=== PATIENT | female | born 1940 | race Asian ===

== ENCOUNTER 2018-02-07 12:47 | Inpatient (IN) | payer BC ==
[~2018-02-07] VITALS: Ht 152.4 cm; Wt 51.1 kg
[2018-02-07 13:25] VITALS: BP_SYST 154
--- NOTE | 2018-02-07 13:35 | NUR ---
Patient to ER bed 1 to gown for evaluation. Side rails up.
--- NOTE | 2018-02-07 13:37 | NUR ---
ER at bedside examining patient.
--- NOTE | 2018-02-07 14:30 | NUR ---
Informed by CT that patient had fall during procedure, fall with right shoulder pain. Patient fell on right shoulder, did not hit her head or have loss of consciousness. MD was called for assessment of patient, patient returned to room via rney. XR of right shoulder ordered. Patient has good range of motion of affected arm. +2 pulses to bilateral radial pulses. Family at bedside upon return.
[2018-02-07] MEDS ORDERED: BACITRACIN 1 GM OINT TP ONE (14:42)
--- NOTE | 2018-02-07 14:44 | NUR ---
MD Pang at bedside talking with family. Will continue to follow up.
--- NOTE | 2018-02-07 14:49 | NUR ---
septic tank service technician and MD at bedside discussing incident with family present at bedside.
[2018-02-07] MEDS ORDERED: ACETAMINOPHEN 325 MG TABLET PO ONE (15:00)
--- NOTE | 2018-02-07 15:01 | NUR ---
XR at bedside for portable exam.
--- NOTE | 2018-02-07 16:48 | NUR ---
Orders recieved from Dr. Carter. Orders to be entered by nurse. Called [facility] for room assignment.
[2018-02-07] MEDS ORDERED: ONDANSETRON HCL 4 MG/2 ML VIAL IVP PRN (17:00)
--- NOTE | 2018-02-07 17:17 | NUR ---
Patient will be admitted to care of Dr. Carter. Admitted to MedSurg unit. Will go to room 102B. Belongings list completed. Summary report printed. Report will be given at bedside.
--- NOTE | 2018-02-07 17:17 | NUR ---
ADMISSION NOTE Received patient from ER via allyssa report received from Jacob ER nurse. Patient admitted with diagnosis of s/p fall . Patient is awake, alert, oriented X 3. Patient oriented to hospital room, call light, toileting, pain management and safety-teach back done. Patient informed that will be her nurse and that their room number is 112-b. Personal belongings checked and Belongings List documented. Call light within reach. Addendum: 02/07/18 at 1807 by Lisette Stewart RN Michelle BLACKWELL RN received report from Danay Larios RN.
[2018-02-07 17:26] VITALS: BP_SYST 162
--- NOTE | 2018-02-07 17:30 | NUR ---
Initial Physical Assessment: Patient awake, alert and oriented. Stable. I.V. access patent on saline lock. R eye swollen, bruise and unable to open. Patient able to walk with assist. All extremities active. Safety measures in placed. Bed alarm on. Call light within reach.
[2018-02-07] MEDS ORDERED: LOSA50TA3 PO (18:03)
[2018-02-07] MEDS ORDERED: ASPI-1153 PO (18:03)
--- NOTE | 2018-02-07 18:30 | NUR ---
rounds: assisted patient to the bedside commode.
--- NOTE | 2018-02-07 19:19 | NUR ---
closing notes: Patient on bed resting with family at bedside. Stable. Needs attended. Safety measures in placed. Call light within reach. Report given to [address].
[2018-02-07 19:24] LABS: BILIRUBIN,URINE NEGATIVE (NEGATIVE); BLOOD, URINE NEGATIVE (NEGATIVE); CLARITY/URINE CLEAR (CLEAR); COLOR,URINE YELLOW (YELLOW); GLUCOSE,URINE NEGATIVE (NEGATIVE); KETONES,URINE NEGATIVE (NEGATIVE); LEUKOCYTE ESTERASE ,URINE NEGATIVE (NEGATIVE); NITRITE, URINE NEGATIVE (NEGATIVE); PROTEIN URINE NEGATIVE (NEGATIVE); UROBILINOGEN,URINE 0.2 (0.2-1.0)
--- NOTE | 2018-02-07 19:30 | NUR ---
Opening Notes Received patient in bed AAOx4 and able to verbalize needs. Vitals wnl. Bruise noted to right eye from fall at home, with pain on the right shoulder from fall during CT scan. IV on the right AC 20 gauge saline lock, clean dry and intact. patient denies and respiratory distress. Bed alarm active. Education give to Belen and family regarding medication and care of the patient while at the facility. Oriented the patient to the room and use of the call light. Safety precautions in place. Will monitor on rounds.
[2018-02-07 19:43] LABS: CKMB RELATIVE INDEX 1.1 (0.0-2.9); CREATINE KINASE MB 2.2 ng/mL (0-3.6)
[2018-02-07 20:00] VITALS: BP_SYST 154
--- NOTE | 2018-02-07 20:05 | NUR ---
Dr Carter contacted. Edwige for family to put Salonpas pad on right shoulder. New order for xray of right shoulder.
--- NOTE | 2018-02-07 20:10 | NUR ---
XRay of shoulder already taken at time of incident. Will cancel TO order.
[2018-02-07] MEDS: CEFTRIAXONE SOD 1 GM/ DEXTROSE,ISO 50 ML PREMIX IV SCH (20:21)
[2018-02-07] MEDS: ACETAMINOPHEN 325 MG TABLET PO PRN (20:21)
[2018-02-07] MEDS ORDERED: LOSARTAN POTASSIUM 50 MG TABLET (COZAAR) PO ONE (21:00)
[2018-02-07] MEDS ORDERED: ASPIRIN 81 MG TAB.CHEW PO ONE (21:00)
[2018-02-07] MEDS ORDERED: cefTRIAXone 1 GM VIAL IV SCH (21:00)
--- NOTE | 2018-02-07 22:15 | NUR ---
Patient ambulated to the bathroom with assistance. Generalized weakness noted. family , Antoinette is at the bedside. Bed alarm is active and will monitor on rounds.
--- NOTE | 2018-02-08 00:26 | NUR ---
Patient asleep in bed. Family member at bedside unable to sleep. Will cont to monitor on rounds.
[2018-02-08 00:32] VITALS: BP_SYST 161
[2018-02-08 02:22] LABS: ANION GAP 8 (5-15); CHLORIDE 106 mmol/L (98-107); CREATININE 0.82 mg/dL (0.55-1.30); GLUCOSE 98 mg/dL (70-99); POTASSIUM 3.2 mmol/L (3.5-5.1); SODIUM SERUM 141 mmol/L (136-145); UREA NITROGEN, BLOOD 12 mg/dL (8-21)
[2018-02-08 02:31] LABS: ALANINE AMINOTRANSFERASE 20 U/L (12-78); ALBUMIN 3.2 g/dL (3.4-4.8); ASPARTATE AMINOTRANSFERASE 23 U/L (10-37); TOTAL BILIRUBIN 0.5 mg/dL (0.0-1.0)
--- NOTE | 2018-02-08 02:55 | NUR ---
Patient ambulated to the bathroom with assistance. Patient states she needs to have bowel movement but has not eaten dinner last night. Able to pass gas. Patient returned to bed to get rest.
--- NOTE | 2018-02-08 04:25 | NUR ---
Patient stable. No change in condition. resting in bed.
--- NOTE | 2018-02-08 06:44 | NUR ---
CLosing Notes Patient has tolerable pain. Refusing to take pain medication at this time. Daughter is at the bedside. All needs have been met and will endorse to the oncoming nurse. Safety precautions in place.
[2018-02-08 07:17] LABS: BASOPHILS # (AUTO) 0.1 K/uL (0.0-0.2); EOSINOPHILS # (AUTO) 0.3 K/uL (0.0-0.4); EOSINOPHILS % (AUTO) 3.7 % (0.0-4.0); HEMATOCRIT 36.8 % (36-48); HEMOGLOBIN 12.1 g/dL (12.0-16.0); LYMPHOCYTES # (AUTO) 1.6 K/uL (1.0-5.5); LYMPHOCYTES % (AUTO) 22.9 % (20.5-51.5); MEAN CORPUSCULAR HEMOGLOBIN 31 pg (27-31); MEAN CORPUSCULAR HGB CONC 33 % (32-36); MEAN CORPUSCULAR VOLUME 95 fL (79.0-98.0); MONOCYTES # (AUTO) 0.5 K/uL (0.0-1.0); MONOCYTES % (AUTO) 6.9 % (1.7-9.3); NEUTROPHILS # (AUTO) 4.4 K/uL (1.8-7.7); NEUTROPHILS % (AUTO) 65.5 % (40.0-70.0); PLATELET COUNT (AUTO) 240 K/uL (130-430); RED BLOOD CELL COUNT(AUTO) 3.88 MIL/uL (4.2-6.2); RED CELL DISTRIBUTION WIDTH 13.3 % (9.0-15.0); WHITE BLOOD COUNT (AUTO) 6.9 K/uL (4.8-10.8)
[2018-02-08 08:05] VITALS: BP_SYST 188
--- NOTE | 2018-02-08 08:05 | NUR ---
INITIAL ROUNDS Received pt AAOx4, no s/s resp distress, no c/o pain or discomfort. Pt's daughter at bedside. Plan of care for the day reviewed with pt and pt's daughter-both verbalized their understanding. Noted pt with edema and bruising to right eye area-pt declined and ice pack. Pt c/o right shoulder stiffness-pt able to move forearm, wiggle fingers, radial pulse palpable. Pt stated it was from when she fell off the gurney in [place] yesterday. Pain management, skin and safety discussed-teach back done. Dr. Carter here to see pt. Call light within reach.
[2018-02-08] MEDS: ACETAMINOPHEN 325 MG TABLET PO PRN ×3 (08:12→20:48)
[2018-02-08] MEDS ORDERED: ENALAPRILAT DIHYDRATE 1.25 MG/ML VIAL IVP PRN (08:45)
[2018-02-08 09:27] VITALS: BP_SYST 148
--- NOTE | 2018-02-08 10:10 | NUR ---
ROUNDS Pt sitting up in bed visiting with family-family given MRI checklist. No c/o pain or discomfort. Pt seen by Dr. Sosa. Needs met, call light within reach.
--- NOTE | 2018-02-08 11:20 | NUR ---
TO MRI Pt left floor via wheelchair to MRI in no distress.
--- NOTE | 2018-02-08 12:45 | NUR ---
BACK FROM MRI Pt back from MRI in no distress, pt made comfortable in bed with no c/o pain or discomfort. Pt now sitting up in bed eating her lunch. Pt's daughter remains at bedside.Call light within reach.
[2018-02-08 16:00] VITALS: BP_SYST 152
--- NOTE | 2018-02-08 16:03 | NUR ---
PHYSICAL THERAPY EVALUATION HAS BEEN COMPLETED. RECOMMEND FWW AND HOME HEALTH PHYSICAL THERAPY DUE TO PATIENT HAVING 6 FALLS WITHIN A ONE YEAR TIME PERIOD. MESSAGE LEFT ON VOICEMAIL FOR PROGRAM AIDE CHRISTIAN HAZEL [phone].
--- NOTE | 2018-02-08 16:44 | NUR ---
DCP. SPOKE WITH PATIENTS EVAELIDIA Majano [phone], PT ADMIITED FOR MECHANICAL FALL WITH FACIAL INJURY . DCP. PATIENT WILL DC HOME WITH HH, TO BE DETERMINED. FWW WILL BE PROVIDED PRIOR TO D/C. SPOKE WITH Harriet HERRERA. DID VERY WELL WITH PHYSICAL THERAPY. AMBULATED IN THE HALLWAY. HAS AN APPT WITH PCP DR AYAD JAIMES AT 2PM. SPOKE WITH DR CHRISTI DESAI DCP. MRI SHOWED ROTATOR CUFF TEAR 1.8 X 1.9. S/P FALL AT [facility] ON 02/07/[address] COVARRUBIAS WAS CONSULTED. WILL CONTINUE TO FF . CHRISTIAN DAVE RN/CM
--- NOTE | 2018-02-08 16:58 | NUR ---
CONSULT ORTHO SHOULDER PAIN DR COVARRUBIAS [phone] DR LAFLEUR DESKTOP ARCHITECT S/W ANIBAL EXCHANGE
--- NOTE | 2018-02-08 17:10 | NUR ---
ATUL SCALE EVALUATION: Late note for 1710 secondary to patient care. Patient evaluated for a low Atul score. Patient was awake, alert, oriented, and received in a [place] bed with an IsoFlex KANWAL mattress. Patient is able to turn independently, and ambulates with a front wheel walker and unsteady gait. Skin is fair (-). Recommend encourage and assist patient as needed with repositioning every 2 hours with pillow support and off-load pressure areas with pillows for pressure re-distribution. Elevate, off-load and float bilateral heels with pillows. Perform skin care and monitor skin integrity Q shift. Skin assessment: 1. Right periorbital area: Ecchymosis. No odor, no drainage. Small amount of yellowish discharge coming from medial eye. Periorbital area is edematous, and patient's eye is barely open. Bilateral pupils: 3 mm, equal, round, and reactive to light and accommodation. Recommend: Apply cold pack to bilateral eyes 4 times a day, and when necessary for edema or pain. Cleanse eye with sterile water, pat dry around eye, as needed for eye discharge. 2. Right facial area, lateral to periorbital area: Wound, sustain from fall. Wound bed has 90% yellow tissue, 5% purple tissue and 5% dark red scab, moist. No odor, no drainage. Periwound and surrounding tissue ecchymotic. Wound measures 2.0 cm x 2.5 cm. Recommend: Cleanse wound with sterile water. Gently pat dry. Apply hydrogel to wound bed. Cover with small non-adhesive foam dressing, cut to size. Secure with transparent dressing. Perform wound care daily, and as needed for dressing soiling or dislodgment. 3. Right shoulder: Pain post fall. Recommend: Apply cold packs to shoulder 4 times a day, and as needed for pain. May switch to heat post 48-72 hours. Explained to patient why a cold pack is beneficial at this time as opposed to heat, and encourage patient to allow use of cold packs to eyes and right shoulder, and patient agreed. Placed a warm blanket on patient post treatment.
--- NOTE | 2018-02-08 17:10 | NUR ---
WOUND CARE Assisted wall mirror department supervisor Dale with wound care. *Patient's right eye cleansed with normal saline and discharge at corner of eye removed. Small abrasion below right eye cleansed with normal saline, Hydrogel placed to wound be, covered with small foam dressing and secured in place with op-site. Wound measured 2 cm x 2.5 cm. Wound bed was 90% yellow tissue, 5% purple tissue and 5 % dark red scab. Ice pack wrapped in a pillow case placed to pt's right eye swelling area. Ice pack x 2 wrapped in pillow case placed to pt's right shoulder on the front and back. Pt tolerated well.
--- NOTE | 2018-02-08 18:30 | NUR ---
CLOSING NOTE Pt resting quietly in bed with no s/s resp distress, no c/o pain or discomfort. Pt and pt's daughter aware of Orthopedic consult with Dr. Torres. Family remains at bedside. Needs met, call light within reach.
--- NOTE | 2018-02-08 19:08 | NUR ---
DR LAFLEUR.. DR. LAFLEUR CALLED AND SAID THE PT IS [facility] AND HE DOES NOT HAVE CONTRACT WITH THEM SO HE CAN NOT SEE THE PT. NOTIFED CHARGE NURSE AND RN.
--- NOTE | 2018-02-08 19:30 | NUR ---
Initial PM Note Pt is resting comfortably in bed fully AAO x4. Speech is clear and pt is able to make her needs known. No c/o pain at this time. Pt's daughter is at the bedside. VSS. Pt is afebrile. Rt upper facial foam dressing is dry and intact. Saline lock in RAC is without any signs of infiltration. Fall and safety precautions are in place. Pt was instructed to call for assistance as needed and pt verbalized understanding. Call light is with pt and bed alarm is on. Bed is in the lowest and locked positions. Will continue to monitor pt.
[2018-02-08 20:00] VITALS: BP_SYST 147
--- NOTE | 2018-02-08 20:00 | NUR ---
Ambulation Pt ambulated to the bathroom with a walker and with steady gait.
--- NOTE | 2018-02-08 20:30 | NUR ---
Dressing Removal/Ice Packs Right upper facial foam dressing was removed by pt's second daughter who came to visit. She stated the wound will heal faster when it is not covered. 1 plastic bottle of sterile water was placed at the bedside per family's request. Pt and family stated pt's right eye does not need cleaning with the sterile water tonight. Sterile 4 x 4 gauze sponges also left at the bedside. Ice packs wrapped in pillow cases were applied to pt's right facial area and right shoulder per family's request.
--- NOTE | 2018-02-08 20:48 | NUR ---
Pain Medication Tylenol 325mg was given po for c/o right facial area pain with relief. Pt's daughters are at the bedside.
[2018-02-08] MEDS: CEFTRIAXONE SOD 1 GM/ DEXTROSE,ISO 50 ML PREMIX IV SCH (20:55)
[2018-02-08] MEDS ORDERED: ASPIRIN 81 MG TAB.CHEW PO SCH (21:00)
[2018-02-08] MEDS ORDERED: LOSARTAN POTASSIUM 50 MG TABLET (COZAAR) PO SCH (21:00)
--- NOTE | 2018-02-08 22:00 | NUR ---
Rounds Pt is sleeping without any distress noted. Fall and safety precautions are in place. Call light is with pt and bed alarm is on. Saline lock in RAC is without any signs of infiltration.
--- NOTE | 2018-02-08 22:09 | NUR ---
CONSULT CONSULT CALLED FOR DR. PEREZ I SPOKE WITH IBAN LAMAR REASON FOR CONSULT: FACIAL FRACTURE REQUESTING CONSULT: DR. BARRAZA TIRE LAYER PHONE NUMBER: [phone]
--- NOTE | 2018-02-09 | NUR ---
Rounds Pt is sleeping without any distress noted. Saline lock is intact in RAC. Call light is with pt and bed alarm is on. Pt's daughter is sleeping in a recliner at the bedside.
[2018-02-09 00:15] VITALS: BP_SYST 151
--- NOTE | 2018-02-09 02:00 | NUR ---
Rounds Pt is sleeping without any distress noted. Fall and safety precautions are in place.
--- NOTE | 2018-02-09 04:00 | NUR ---
Rounds Pt is sleeping comfortably in bed. Saline lock is intact in RAC. Call light is with pt and bed alarm is on. Will continue to monitor pt.
--- NOTE | 2018-02-09 06:27 | NUR ---
Closing Note Pt is awake and resting comfortably in bed. All pt's needs were attended to. No fall or injury noted this shift. Saline lock is intact in RAC. Fall and safety precautions are in place. Will endorse to day shift nurse.
[2018-02-09 08:04] VITALS: BP_SYST 160
--- NOTE | 2018-02-09 08:20 | NUR ---
OPENING NOTE: MORNING REPORT WAS TAKEN FROM MANAGER STAR NURSE. PATIENT ALERT AND ORIENTED X4. PATIENT IS NOT COMPLAINING OF SHORTNESS OF BREATH. PATIENT NOT COMPLAINING OF NAUSEA OR VOMITING. PATIENT NOT COMPLAINING OF CONSTIPATION. PATIENT ONLY COMPLAINING OF PAIN WHEN SHE MOVES. FAMILY AT BEDSIDE. FAMILY REFUSED TO HAVE BED ALARM ON BECAUSE THEY HELP HER TO RESTROOM. EDUCATED TO CALL IF THEY NEED HELP. VERBALIZED UNDERSTANDING. CALL LIGHT IS IN REACH AND BED IN LOWEST POSITION. WILL CONTINUE TO MONITOR.
--- NOTE | 2018-02-09 10:08 | NUR ---
NOTE: GAVE PATIENT VASOTEC BECAUSE PATIENT'S BLOOD PRESSURE ELEVATED. WILL CONTINUE TO MONITOR AND REASSESS BLOOD PRESSURE.
--- NOTE | 2018-02-09 11:01 | NUR ---
DCP. MET WITH PT. 3 DTRS AT BEDSIDE. PT LIVES WITH ELIDIA. DCP HOME WITH [facility] [phone]. FWW WAS PROVIDED TO PT. YESTERDAY. RECEIVED ORDER FOR COMMODE. WILL BE DELIVERED TO HOME PLAN TO DC HOME TO HER DTR [place] [address], T [phone]. FF UP WITH PCP DR LION, [facility] T [phone]. FF UP WITH ORTHO CHRISTIAN DAVE RN/CM
--- NOTE | 2018-02-09 11:45 | NUR ---
NOTE: GAVE VASOTEC BECAUSE BP WAS 160/77. WENT TO RECHECK BUT PATIENT WAS GOING PHYSICAL THERAPY. BP WAS 154/72 AFTER. JUST REASSESSED NOW THAT PATIENT RESTING AND WAS 150/77. PATIENT HAS NO FURTHER REQUESTS. WILL CONTINUE TO MONITOR.
[2018-02-09 12:00] VITALS: BP_SYST 159
--- NOTE | 2018-02-09 14:30 | NUR ---
MD: CAME IN AND SAW PATIENT. EXPLAINED TO THE FAMILY WHAT THE PLAN WAS AND TALKED ABOUT HER INJURY. ALL QUESTIONS OF FAMILY WERE ASKED BY .
[2018-02-09 14:45] VITALS: BP_SYST 133
--- NOTE | 2018-02-09 15:23 | NUR ---
NOTE: GAVE SLING TO PATIENT AND FAMILY. DAUGHTER SIGNED PAPERWORK CONFIRMING SHE GOT IT. EDUCATED FAMILY HOW TO PUT IT ON. SHOWED DEMONSTRATION.
--- NOTE | 2018-02-09 15:49 | NUR ---
NOTE: EDUCATED PATIENT AND FAMILY ON DISCHARGE PAPERWORK. EDUCATED ABOUT HOME HEALTH. LET THEM KNOW ABOUT MEDICAL EQUIPMENT GOING TO HOUSE. TOLD THEM TO FOLLOW UP WITH THEIR PHYSICIANS. BOTH HAVE NO FURTHER QUESTIONS.
--- NOTE | 2018-02-09 17:16 | NUR ---
D/C Patient Patient given medication reconciliation form and D/C instructions. Gave family CD of tests. Exit Care provided. Patient verbalized understanding. MD discussed with patient the results and treatment provided. Patient in stable condition, ID band removed. IV catheter removed, intact and dressing applied, no active bleeding. Patient educated on pain management. All belongings sent with patient. Patient wheeled out to front by RESERVATIONIST.
== END 2018-02-09 17:11 | disposition home health service (06) | DRG 605 ==
LOC: SED 12:47 → SMU 16:53
PROVIDERS: ADMIT Internal Medicine Hospice and Palliative Medicine; ATTEND Internal Medicine Hospice and Palliative Medicine
DX: S01.81XA Laceration without foreign body of other part of head, initial encounter (principal); S46.011A Strain of muscle(s) and tendon(s) of the rotator cuff of right shoulder, initial encounter; W01.0XXA Fall on same level from slipping, tripping and stumbling without subsequent striking against object, initial encounter; S09.8XXA Other specified injuries of head, initial encounter; I10 Essential (primary) hypertension; Y93.89 Activity, other specified; Y92.89 Other specified places as the place of occurrence of the external cause; Y99.8 Other external cause status
CPT/HCPCS: 36415; 70450-TC; 70486-TC; 72125-TC; 73030; 73221; 80053; 81003; 82550-TC; 82553-TC; 84484; 85025; 93880; 97116-GP; 99285; J0696